=== PATIENT | female | born 1970 | race Caucasian/White ===

== ENCOUNTER 2021-09-05 14:16 | Emergency (ER) | payer BC, OTHER ==
[~2021-09-05] VITALS: Ht 152.4 cm; Wt 127.5 kg
--- NOTE | 2021-09-05 14:42 | ED General ---
General Stated Complaint: ELEV BP Source of Information: Patient Exam Limitations: No Limitations History of Present Illness Date Seen by Provider: Sep 05, 2021 Time Seen by Provider: 14:26 Initial Comments Patient is a 51-year-old female who presents to the emergency department today with a chief complaint of elevated blood pressures. Patient states that she was with a coworker yesterday and the coworker was having her blood pressure checked and she thought that she might as well have her ears checked as well. She states yesterday she did notice that she was a little bit "dizzy". Reportedly when she was checked she was in the 180s over 110 range. She had it checked again today at school and it was again elevated in the 180s/190s. She states still she feels a little "dizzy". She denies any headache, visual changes. She denies chest pain, shortness of breath. No bloody stools, diarrhea. She states she has a little leg swelling periodically. No decrease frequency of urination or decreas ed amounts. No recent fevers, chills, cough or congestion. She is not Covid vaccinated. She is prescribed hydrochlorothiazide for hypertension, her primary care physician is Dr. Valdes. It has been 6 months since she seen him. Further history from her is that she has potentially missed about a week to a week and a half of her hydrochlorothiazide because she had accidentally forgot to stock it into her daily pill counter. Last menstrual cycle was in July. She has a history of tubal ligation. She states that her periods over the last year have become more irregular. She believes she is going through menopause. All other review of systems reviewed and negative except as stated. Timing/Duration: 1-2 Days Severity: Moderate Associated Systoms: Other (dizzy) Allergies and Home Medications Allergies Coded Allergies: No Known Drug Allergies (Unverified , 09/05/21) Patient Home Medication List Home Medication List Reviewed: Yes Review of Systems Review of Systems Constitutional: see HPI EENTM: no symptoms reported Respiratory: no symptoms reported Cardiovascular: no symptoms reported Gastrointestinal: no symptoms reported Genitourinary: no symptoms reported Musculoskeletal: no symptoms reported Skin: no symptoms reported Psychiatric/Neurological: Other ("dizzy" (mild)) All Other Systems Reviewed Negative Unless Noted: Yes Physical Exam Vital Signs Vital Signs - First Documented 09/05/21 14:18 Temp 36.5 Pulse 95 Resp 17 B/P (MAP) 182/101 (128) O2 Delivery Room Air Capillary Refill : Height, Weight, BMI Height: '" Weight: lbs. oz. kg; BMI Method: General Appearance: No Apparent Distress, WD/WN Eyes: Bilateral Eye Normal Inspection, Bilateral Eye PERRL, Bilateral Eye EOMI HEENT: PERRL/EOMI, TMs Normal, Normal ENT Inspection, Pharynx Normal, Moist Mucous Membranes Neck: Normal Inspection Respiratory: Lungs Clear, Normal Breath Sounds, No Accessory Muscle Use, No Respiratory Distress Cardiovascular: Regular Rate, Rhythm, Systolic Murmur ([place] best at the Left upper sternal border, 3/6 (radiates across the precordium)) Gastrointestinal: Normal Bowel Sounds, No Organomegaly, Non Tender, Soft Back: Normal Inspection Extremity: Normal Inspection, Normal Range of Motion, Non Tender, No Calf Tenderness, No Pedal Edema Neurologic/Psychiatric: Alert, Oriented x3, No Motor/Sensory Deficits, Normal 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, 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 as Tested Skin: Normal Color, Warm/Dry, Other (she does appear a little flushed in the face) Progress/Results/Core Measures Suspected Sepsis SIRS Temperature: Pulse: Respiratory Rate: Blood Pressure / Mean: Laboratory Tests 09/05/21 14:46: Creatinine 0.95 Results/Orders Lab Results Laboratory Tests Test 09/05/21 14:46 Range/Units Sodium Level 138 135-145 MMOL/L Potassium Level 2.9 L 3.6-5.0 MMOL/L Chloride Level 99 98-107 MMOL/L Carbon Dioxide Level 28 21-32 MMOL/L Anion Gap 11 5-14 MMOL/L Blood Urea Nitrogen 21 H 7-18 MG/DL Creatinine 0.95 0.60-1.30 MG/DL Estimat Glomerular Filtration Rate 63 BUN/Creatinine Ratio 22 Glucose Level 167 H 70-105 MG/DL Calcium Level 9.7 8.5-10.1 MG/DL My Orders Orders - KAELA BOONE MD Basic Metabolic Panel (09/05/21 14:36) Vital Signs/I&O 09/05/21 14:18 Temp 36.5 Pulse 95 Resp 17 B/P (MAP) 182/101 (128) O2 Delivery Room Air Capillary Refill : Progress Note : Time: 14:42 Progress Note Patient counseled on hypertension and need for compliance with medications. She is "dizzy" but this appears to be a mild symptom. I have discussed with her and her the work-up of asymptomatic hypertension. Normally I would not do any evaluation however secondary to the patient's obesity, relatively high numbers with a diastolic reaching 110, and having been 6 months since she saw Dr[address] Valdes and the lack of taking her hydrochlorothiazide over the last week to 2 weeks I am going to go ahead and check a basic metabolic panel to assess electrolytes, renal function and blood sugar. Patient is agreeable with this plan of care. As I have talked to her her numbers have declined on her blood pressure to a more comfortable level, low 180s over 80s. Departure Impression Primary Impression: Hypertension Qualified Codes: I10 - Essential (primary) hypertension Additional Impression: Hypokalemia Disposition: 01 HOME, SELF-CARE Condition: Stable Departure-Patient Inst. Decision time for Depature: 15:51 Referrals: SHLOMO VALDES MD (PCP/Family) Primary Care Physician Patient Instructions: Hypokalemia (DC) Add. Discharge Instructions: I have prescribed you a low dose of potassium to take over the next 3 DAYS. We have given you a dose here in the emergency department. ( I have actually given you #[address] Valdes wants to extend dosing) I would ask you to call your primary care physician's office today to schedule a follow-up appointment early next week and have your potassium levels rechecked and to reassess your blood pressure. Please take your HCTZ daily as prescribed until you follow-up with your doctor. You should take random blood pressures once a day at various times of the day over the course of the next week until you see him and take a record of these readings to your doctor's office. Your blood sugar was a little high today. Your primary care doctor will probably want to recheck that as well. A little extra potassium in your diet would not be harmful. Foods rich in potassium include potatoes and sweet potatoes, avocados, bananas and beets. Watch your carbohydrate/sugar intake. Come back to the emergency department if you develop any new, concerning or emergent complaints. Scripts Potassium Chloride (K-Tab ER) 10 Meq Tablet.er 10 MEQ PO DAILY for 3 Days, #10 TAB Prov: KAELA BOONE MD 09/05/21 Copy Copies To 1: SHLOMO VALDES MD, KATHRYN M MD Sep 05, 2021 14:42
[2021-09-05 15:20] LABS: CALCIUM 9.7 MG/DL (8.5-10.1); CREATININE SERUM 0.95 MG/DL (0.60-1.30); POTASSIUM 2.9 MMOL/L (3.6-5.0)
[2021-09-05] MEDS ORDERED: POTA10TA PO (15:35)
[2021-09-05] MEDS ORDERED: KCL 20 MEQ TAB (K-DUR) PO ONE (15:45)
[2021-09-05 15:49] VITALS: BP 162/101
== END 2021-09-05 15:49 | disposition home or self-care (01) ==
LOC: ER FS 14:18
DX: I10 Essential (primary) hypertension (principal); E87.6 Hypokalemia
CPT/HCPCS: 36415; 80048; 99283